=== PATIENT | male | born 2000 | race Caucasian/White ===

== ENCOUNTER 2025-06-26 11:51 | Emergency (ER) | payer OTHER ==
[~2025-06-26] VITALS: Ht 177.8 cm; Wt 63.6 kg
[2025-06-26 11:52] VITALS: TEMP 98.1
[2025-06-26 13:04] LABS: APPEARANCE,URINE HAZY (CLEAR); GLUCOSE, URINE (UA) NEGATIVE (NEGATIVE); LEUKOCYTE ESTERASE ,URINE NEGATIVE (NEGATIVE); NITRATE,URINE NEGATIVE (NEGATIVE); OCCULT BLOOD,URINE NEGATIVE (NEGATIVE); SPECIFIC GRAVITIY, URINE 1.020 (1.003-1.030)
[2025-06-26 14:38] LABS: PLATELET COUNT (AUTO) 168 K/uL (150-450); RED BLOOD CELL COUNT(AUTO) 5.40 MIL/uL (4.50-5.90); RED CELL DISTRIBUTION WIDTH 12.6 % (11.5-14.5); WHITE BLOOD COUNT (AUTO) 9.6 K/uL (4.5-11.0)
[2025-06-26 15:11] LABS: CALCIUM, TOTAL 10.0 mg/dL (8.8-10.5); CREATININE 0.93 mg/dL (0.60-1.30); GLOMERULAR FILTR. RATE CALC > 60 mL/min (>60); GLUCOSE,RANDOM 93 mg/dL (70-110); SODIUM SERUM 142 mmol/L (136-145); UREA NITROGEN, BLOOD 14 mg/dL (7-18)
[2025-06-26 15:40] LABS: ASPARTATE AMINOTRANSFERASE 22 U/L (15-37); TOTAL PROTEIN, SERUM 7.9 g/dL (6.4-8.2)
[2025-06-26] MEDS: ACETAMINOPHEN 500 MG TABLET PO ONE (15:44)
[2025-06-26 16:31] VITALS: BP 131/90; PULSE 62; RESP 18; O2SAT 97
== END 2025-06-26 17:06 ==
LOC: EMS 11:52
DX: K40.90 Unilateral inguinal hernia, without obstruction or gangrene, not specified as recurrent (principal); F17.210 Nicotine dependence, cigarettes, uncomplicated; Z98.890 Other specified postprocedural states
CPT/HCPCS: 72170; 76870; 80053; 81003; 85025; 99284